=== PATIENT | female | born 1985 | race Caucasian/White ===

== ENCOUNTER → 2016-12-18 | Day surgery (SDC) | payer BC ==
[~2016-12-18] MED LIST: CHOL100013 PO; CHOL4POW11 PO; ELUX75TA PO; FENTANYL PF 100 MCG/2 ML VIAL. IV PRN; HYDR-971 PO; IV RINGERS,LACTATED 1000ML 1,000 ML IV SCH; LIDOCAINE 1% 1 ML SYRINGE. ID PRN; LIDOCAINE 2% PF Vial for OR 5 ML VIAL. ONE; METF10002 PO; MIDAZOLAM HCL 2 MG/2 ML VIAL. IV PRN; NAPR500T8 PO; PARO20TA55 PO; PROPOFOL 40 ML IV ONE; birth control PO
[2016-12-18 12:12] LABS: NEG OBC UR NEG; POS OBC UR POS
[2016-12-18 12:48] VITALS: BP 121/55
--- NOTE | 2016-12-19 13:19 | PATHOLOGY ---
PATHOLOGY REPORT * * * * * * * * FINAL DIAGNOSIS: Colonic mucosa, random colon biopsy: - No significant pathologic abnormalities. COMMENT: Sections of the random colon biopsy reveal multiple segments of colonic mucosa containing a few mucosal-associated lymphoid aggregates. There is no evidence of a chronic destructive colitis, lymphocytic colitis, or collagenous colitis. (JPM:csd; d/t: 12/19/2016) REPORT ELECTRONICALLY SIGNED BY: Eliezer Jones M.D. DATE/TIME: 12/19/2016 13:18 * * * * * * * * GROSS PATHOLOGY: Received in formalin labeled "Arya Mcrae and random colon bx's," are multiple segments of colin soft tissue measuring 2.4 x 0.5 x 0.3 cm in aggregate dimensions and ranging from 0.3 to 0.7 cm in maximum dimension. The specimen is submitted entirely in cassette A1. (TTL; 12/18/2016) INITIAL CPT CODE(S): A; 24500 Professional services performed [place] [address] Technical services performed by [facility] at [address] [place] [address] [address] [address]. SPECIMEN(S) RECEIVED: A.Random colon biopsy CLINICAL HISTORY: Diarrhea PATIENT: ARYA MCRAE /AGE: 704/18/1985 (Age: 31) PATIENT #: [id number] ALT CASE #: SPECIMEN COLLECTION DATE: 12/18/2016 SPECIMEN RECEIVED DATE: 12/18/2016 [facility] - [address] [place] [address] - PHONE: [phone] * * * END OF REPORT * * *
== END | disposition home or self-care (01) ==
LOC: SURG 11:45
PROVIDERS: ATTEND Internal Medicine Gastroenterology
DX: K64.0 First degree hemorrhoids (principal); K52.9 Noninfective gastroenteritis and colitis, unspecified; F41.9 Anxiety disorder, unspecified; K58.9 Irritable bowel syndrome, unspecified; Z80.3 Family history of malignant neoplasm of breast; Z80.41 Family history of malignant neoplasm of ovary; Z83.3 Family history of diabetes mellitus; Z72.89 Other problems related to lifestyle; Z90.49 Acquired absence of other specified parts of digestive tract; Z98.51 Tubal ligation status
CPT/HCPCS: 45380; 81025; 88305; J2704

== ENCOUNTER 2017-09-14 08:22 | Day surgery (SDC) | payer BC ==
[~2017-09-14] VITALS: Ht 160 cm; Wt 122.5 kg
[~2017-09-14 08:22] MED LIST changes: +BUPIVACAINE MPF 0.5% 30 ML VIAL. ONE; -FENTANYL PF 100 MCG/2 ML VIAL. IV PRN; -LIDOCAINE 1% 1 ML SYRINGE. ID PRN; +LIDOCAINE 1% PF 2 ML VIAL. ID PRN; +LIDOCAINE 1% PF 30 ML VIAL. ONE; -LIDOCAINE 2% PF Vial for OR 5 ML VIAL. ONE; +METF-620 PO; -METF10002 PO; -MIDAZOLAM HCL 2 MG/2 ML VIAL. IV PRN; +MORPHINE SULFATE 2 MG/ML DISP.SYRIN. IV PRN; +NAPR220T70 PO; +ONDANSETRON PF 4 MG/2 ML VIAL. IV PRN; -PARO20TA55 PO; +PARO20TA99 PO; +PROCHLORPERAZINE 10 MG/2 ML VIAL. IV PRN; -PROPOFOL 40 ML IV ONE; +fentaNYL PF VIAL 100 MCG/2 ML VIAL IV PRN
[2017-09-14 09:10] LABS: NEG OBC UR NEG; POS OBC UR POS
--- NOTE | 2017-09-14 09:20 | DISCH ---
DISCHARGE INSTRUCTIONS Condition on Discharge Condition on Discharge: Stable Activity After Discharge Activity Instructions for Disc: Other, see below Other activity instructions: no running, jumping, impact activity or athletics for 6 wks Bathing Instructions: Shower-keep dressing dry Weight Bearing Status after Di: As tolerated Diet after Discharge Diet after Discharge: Regular Wound Incision Care Wound/Incision Care: Ice to area for comfort, Keep wound/cast CDI, Change dressing Contacting the DR. after DC Call your doctor for: Concerns you may have Follow-Up Follow up with: Yohannes in 2wks Treatment/Equipment after DC Adaptive Equipment Issued: None NIGHAT MAR II, MD Sep 14, 2017 09:20
--- NOTE | 2017-09-14 09:24 | PDOC4 ---
Operative Note Operative Note Date of surgery: 09/14/2017 Preoperative diagnosis painful hardware right knee Postoperative diagnosis: Same next Procedure performed: Right knee hardware removal Surgeon: Bi Mar Anesthesia Gen. Findings expected bursal tissue over screws. Blood loss: 10mL Complications: None Reason for procedure: Siri is a 32-year-old female who underwent a successful tibial tubercle osteotomy and medial patellofemoral ligament reconstruction with myself about a year ago. She has complaints of pain with palpation over the prominent screw heads and requested that these be removed. I discussed the risks, benefits, alternatives, and limitations after surgery and she wished to proceed. Description of procedure: Patient was greeted in the preoperative area by myself for the correct extremity was marked and verified. She was taken back to the operative suite and her antibiotics were started and row. Once in the OR, she was transferred gently supine to the OR table and secured to the bed with all pressure points padded. A tourniquet wasn't applied to her leg. We then proceeded to prep and drape right lower extremity are usual sterile fashion and conducted our standard preoperative timeout. I then brought in C-arm to localize screws and incised skin through my prior skin incision. Attempt dissected subcutaneous tissue until I encountered the screw heads with electrocautery and cauterized bleeders as a were encountered. I used a [place] to expose the screw heads and removed them without complication. I confirmed this with C-arm. I then used a small curet to debride the screw holes. The operative field was irrigated out. Inverted interrupted 20 was used in a multilayered fashion for subcutaneous tissue closure and running 4-0 Monocryl in a subarticular fashion was used for skin. Prior to accomplishing wound closure all counts were reported as correct 2. I then injected a local anesthetic mixture around the augusto-incisional area. The operative site was then cleansed and dried and Xeroform, gauze, soft padding and an Cesario wrap were applied. She is awake from anesthesia. No competitions. She tolerated surgery well. She was transferred supine to the recovery room cart and taken to PACU in a stable and extubated condition. Postoperative plan is weight-bear as tolerated, no athletics, wound care was discussed with her. She will follow up in 2 weeks, sooner should a problem arise BI MAR II, MD Sep 14, 2017 09:24
[2017-09-14] MEDS ORDERED: LIDOCAINE 2% PF Vial for OR 5 ML VIAL. ONE (09:56)
[2017-09-14] MEDS ORDERED: ONDANSETRON PF 4 MG/2 ML VIAL. ONE (09:56)
[2017-09-14] MEDS ORDERED: FAMOTIDINE 20 MG/2 ML VIAL ONE (09:56)
[2017-09-14] MEDS ORDERED: MIDAZOLAM HCL/PF 2 MG/2 ML VIAL. ONE (09:56)
[2017-09-14] MEDS ORDERED: DEXAMETHASONE SOD PHOS 20 MG/5 ML VIAL. ONE (09:56)
[2017-09-14] MEDS ORDERED: PROPOFOL 20 ML IV ONE (09:56)
[2017-09-14] MEDS ORDERED: SUCCINYLCHOLINE 200 MG/10 ML VIAL. ONE (09:56)
[2017-09-14] MEDS ORDERED: fentaNYL PF VIAL 100 MCG/2 ML VIAL ONE (09:56)
[2017-09-14] MEDS ORDERED: DESFLURANE 31 TO 60 MINUTES IH ONE (10:29)
[2017-09-14] MEDS: fentaNYL PF VIAL 100 MCG/2 ML VIAL IV PRN ×4 (10:53→11:09)
[2017-09-14] MEDS: HYDROmorphone 2 MG/ML VIAL IV PRN ×4 (11:14→11:45)
[2017-09-14 11:41] VITALS: BP 144/66
[2017-09-14] MEDS ORDERED: OXYC-323 PO (11:41)
[2017-09-14] MEDS ORDERED: DOCU-109 PO (11:42)
[2017-09-14] MEDS ORDERED: oxyCODONE/APAP 5/325 1 TAB TABLET PO ONE (11:45)
== END 2017-09-14 12:20 | disposition home or self-care (01) ==
LOC: SURG 08:22
PROVIDERS: ATTEND Orthopaedic Surgery Sports Medicine
DX: T84.84XA Pain due to internal orthopedic prosthetic devices, implants and grafts, initial encounter (principal); Y84.8 Other medical procedures as the cause of abnormal reaction of the patient, or of later complication, without mention of misadventure at the time of the procedure; Y92.89 Other specified places as the place of occurrence of the external cause; E66.9 Obesity, unspecified; Z68.42 Body mass index [BMI] 45.0-49.9, adult; F41.9 Anxiety disorder, unspecified; F17.200 Nicotine dependence, unspecified, uncomplicated; Z87.01 Personal history of pneumonia (recurrent); Z86.69 Personal history of other diseases of the nervous system and sense organs; Z90.49 Acquired absence of other specified parts of digestive tract; Z72.89 Other problems related to lifestyle; Z98.51 Tubal ligation status; Z88.1 Allergy status to other antibiotic agents
CPT/HCPCS: 20680; 76000; 81025; J0330; J0690; J1100; J1170; J2250; J2405; J2704; J3010; J3490; J7030; S0028; J2001